=== PATIENT | male | born 1965 | race Caucasian/White ===

== ENCOUNTER 2017-11-02 20:27 | Observation (INO) ==
[2017-11-02] MEDS ORDERED: Nitroglycerin 0.4 MG TAB.SUBL SL ONE (20:30)
[2017-11-02] MEDS ORDERED: 0.9 % Sodium Chloride 500 ML IVC ONE (20:30)
[2017-11-02] MEDS ORDERED: Ondansetron 4 MG/2 ML VIAL IVP ONE (20:30)
[2017-11-02] MEDS ORDERED: Aspirin 81 MG TAB.CHEW PO ONE (20:30)
[2017-11-02 20:56] LABS: Basophils # 0.1 K/mcL (0.0-0.2); Basophils % 0.4 %; Eosinophils # 0.1 K/mcL (0.0-0.6); Eosinophils % 0.6 %; Hematocrit 43.2 % (37.5-50.1); Hemoglobin 14.9 g/dL (12.9-16.9); Immature Granulocytes % 0.4 % (0-4); Lymphocytes # 2.5 K/mcL (0.6-4.6); Mean Corpuscular HGB Conc 34.5 g/dL (31.6-35.5); Mean Corpuscular Hemoglobin 30.1 pg (28.0-33.3); Mean Corpuscular Volume 87.3 fL (83.0-100.0); Mean Platelet Volume 11.2 fL (9.4-12.4); Monocytes # 1.1 K/mcL (0.0-1.3); Monocytes % 7.9 %; Neutrophils # 9.6 K/mcL (1.6-8.9); Platelet Count 216 K/mcL (140-400); Red Blood Count 4.95 M/mcL (4.19-5.50); Red Cell Distribution Width 13.4 % (11.5-14.5); Segmented Neutrophils % 71.7 %
[2017-11-02 21:01] LABS: Prothrombin Time 10.8 Seconds (9.4-12.1)
[2017-11-02 21:04] LABS: Activated Partial Thrombo Time 29.7 Seconds (26.0-36.0)
[2017-11-02 21:10] LABS: BUN/Creatinine Ratio 10 (6-26); Blood Urea Nitrogen 10 mg/dL (6-20); Calcium 9.7 mg/dL (8.6-10.3); Carbon Dioxide 19 mEq/L (23-29); Chloride 107 mEq/L (98-107); Glucose 107 mg/dL (70-105); Osmolality,Calculated 282 (280-300); Potassium 3.5 mEq/L (3.5-5.1); Sodium 136 mEq/L (136-145); eGFR For African Americans > 60 (> 60); eGFR For Non-African Americans > 60 (> 60)
[2017-11-02 21:11] LABS: Albumin 4.6 g/dL (3.5-5.7); Albumin/Globulin Ratio 1.7 (1.1-2.2); Bilirubin,Direct 0.1 mg/dL (0.0-0.2); Bilirubin,Indirect 0.3 mg/dL (0.0-1.2); Bilirubin,Total 0.4 mg/dL (0.3-1.0); Globulin 2.7 g/dL (2.4-3.5); Total Protein 7.3 g/dL (6.4-8.9)
[2017-11-02] MEDS ORDERED: 0.9 % Sodium Chloride 1,000 ML IVC ONE (21:28)
[2017-11-02] MEDS ORDERED: Metoclopramide 10 MG/2 ML VIAL IVP ONE (21:41)
[2017-11-02] MEDS ORDERED: *HR* LORazepam 2 MG/ML VIAL IVP STA (21:42)
--- NOTE | 2017-11-02 22:07 | Emergency Department Note ---
Disposition Clinical Impression: Intractable nausea and vomiting Qualifiers: Vomiting type: unspecified Qualified Code(s): R11.2 - Nausea with vomiting, unspecified Disposition: Admitted As Inpatient Condition: Fair Referrals: NONE,PCP [Primary Care Provider] - Forms: ED Satisfaction Letter General Adult HPI - General Chief complaint: ED Chest Pain Stated complaint: chest pain Time Seen by Provider: 11/02/17 20:30 Source: EMS Limitations: no limitations Nursing Notes Reviewed: Yes Vital Signs Reviewed: Yes - History of Present Illness HPI Narrative: Patient presents to the emergency department via EMS with nausea and vomiting. EMS reports chest pain. The patient continues to dry heave upon evaluation. Patient is mildly diaphoretic and uncomfortable. The patient is not able to give any useful history. Patient has a peak history of PTSD and does not like to be touched. Examination of his abdomen or other through palpation is impossible. Slight touch to the arms causes him to jump which is related to be to his PTSD. At this point the patient's differential is broad. Intractable nausea and vomiting will undergo laboratory evaluation as well as CT head, chest , abdomen and pelvis. Discussed with CT the need for PE and dissection study of the chest with abdomen and pelvis with IV contrast. Zofran and fluids and been given. 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 Head: Normocephalic Atraumatic Eyes: PERRL, EOMI ENT: Airway patent, no stridor Neck: supple, no meningismus Chest: Lungs clear to auscultation bilateral Cardiac: Regular rate and rhythm, no murmurs, rubs or gallops Abdomen: diffuse tenderness to palpation - hard to interperet bcs diffuse to chest and extremities. Musculoskeletal: generalized tenderness to palpation. Skin: No rash, normal skin tone Neuro: moves all extremities without deficit - General Limitations: no limitations General appearance: in distress Course - Reevaluation(s) Reevaluation #1: Patient improved after the Reglan, Benadryl, Ativan has been given. Patient is a able to hold a conversation at this point. Patient still feels uncomfortable. He states that he gets really sick when he feels unwell. He is not able to further describe the symptoms the family states that he has had complaints of chest pain. He does have previous history of - Consultations Consultation #1: Discussed Dr. Gilbert. Patient accepted for admission secondary to intractable nausea vomiting, chest pain, and elevated lactate. Patient's vital signs are stable at this time. Vital Signs Temperature 98 F 11/02/17 20:31 Pulse Rate 59 11/02/17 20:31 Respiratory Rate 20 11/02/17 20:31 Blood Pressure 122/75 11/02/17 20:31 O2 Sat by Pulse Oximetry 99 11/02/17 20:31 Temperature 98 F 11/02/17 20:31 Pulse Rate 60 11/02/17 22:41 Respiratory Rate 18 11/02/17 22:41 Blood Pressure 113/71 11/02/17 22:41 O2 Sat by Pulse Oximetry 95 11/02/17 22:41 Oxygen Delivery Oxygen Delivery Nasal Cannula Medical Decision Making - Lab Data Result diagrams: 11/02/17 20:47 11/02/17 20:47 Lab Results 11/02/17 11/02/17 11/02/17 Range/Units 20:47 20:47 20:47 WBC (4.3-11.1) K/mcL RBC (4.19-5.50) M/mcL Hgb (12.9-16.9) g/dL Hct (37.5-50.1) % MCV (83.0-100.0) fL MCH (28.0-33.3) pg MCHC (31.6-35.5) g/dL RDW (11.5-14.5) % Plt Count (140-400) K/mcL MPV (9.4-12.4) fL Immature Gran % (0-4) % Seg Neutrophils % % Lymphocytes % % Monocytes % % Eosinophils % % Basophils % % Neutrophils # (1.6-8.9) K/mcL Lymphocytes # (0.6-4.6) K/mcL Monocytes # (0.0-1.3) K/mcL Eosinophils # (0.0-0.6) K/mcL Basophils # (0.0-0.2) K/mcL PT 10.8 (9.4-12.1) Seconds INR 1.0 APTT 29.7 (26.0-36.0) Seconds Sodium (136-145) mEq/L Potassium (3.5-5.1) mEq/L Chloride (98-107) mEq/L Carbon Dioxide (23-29) mEq/L BUN (6-20) mg/dL Creatinine (0.70-1.30) mg/dL Est GFR ( Amer) (> 60) Est GFR (Non-Af Amer) (> 60) BUN/Creatinine Ratio (6-26) Glucose (70-105) mg/dL Calculated Osmolality (280-300) Lactic Acid (0.5-2.2) mmol/L Calcium (8.6-10.3) mg/dL Total Bilirubin 0.4 (0.3-1.0) mg/dL Direct Bilirubin 0.1 (0.0-0.2) mg/dL Indirect Bilirubin 0.3 (0.0-1.2) mg/dL AST 16 (13-39) Units/L ALT 16 (7-52) Units/L Alkaline Phosphatase 58 (34-104) Units/L Troponin I (< 0.04) ng/mL B-Natriuretic Peptide 16 (Less than 100) pg/mL Serum Total Protein 7.3 (6.4-8.9) g/dL Albumin 4.6 (3.5-5.7) g/dL Globulin 2.7 (2.4-3.5) g/dL Albumin/Globulin Ratio 1.7 (1.1-2.2) Lipase 25 (11-82) Units/L Urine Color (Yellow) Urine Clarity (Clear) Urine pH (5.0-8.0) pH Units Ur Specific [place] (1.010-1.025) Urine Protein (Neg-Trace) mg/dL Urine Glucose (UA) (Normal) mg/dL Urine Ketones (Negative) mg/dL Urine Blood (Negative) Urine Nitrite (Negative) Urine Bilirubin (Negative) Urine Urobilinogen (Normal) mg/dL Ur Leukocyte Esterase (Negative) Ur Culture Indicated? (NO) 11/02/17 11/02/17 11/02/17 Range/Units 20:47 20:47 20:47 WBC 13.4 H (4.3-11.1) K/mcL RBC 4.95 (4.19-5.50) M/mcL Hgb 14.9 (12.9-16.9) g/dL Hct 43.2 (37.5-50.1) % MCV 87.3 (83.0-100.0) fL MCH 30.1 (28.0-33.3) pg MCHC 34.5 (31.6-35.5) g/dL RDW 13.4 (11.5-14.5) % Plt Count 216 (140-400) K/mcL MPV 11.2 (9.4-12.4) fL Immature Gran % 0.4 (0-4) % Seg Neutrophils % 71.7 % Lymphocytes % 19.0 % Monocytes % 7.9 % Eosinophils % 0.6 % Basophils % 0.4 % Neutrophils # 9.6 H (1.6-8.9) K/mcL Lymphocytes # 2.5 (0.6-4.6) K/mcL Monocytes # 1.1 (0.0-1.3) K/mcL Eosinophils # 0.1 (0.0-0.6) K/mcL Basophils # 0.1 (0.0-0.2) K/mcL PT (9.4-12.1) Seconds INR APTT (26.0-36.0) Seconds Sodium 136 (136-145) mEq/L Potassium 3.5 (3.5-5.1) mEq/L Chloride 107 (98-107) mEq/L Carbon Dioxide 19 L (23-29) mEq/L BUN 10 (6-20) mg/dL Creatinine 0.97 (0.70-1.30) mg/dL Est GFR ( Amer) > 60 (> 60) Est GFR (Non-Af Amer) > 60 (> 60) BUN/Creatinine Ratio 10 (6-26) Glucose 107 H (70-105) mg/dL Calculated Osmolality 282 (280-300) Lactic Acid (0.5-2.2) mmol/L Calcium 9.7 (8.6-10.3) mg/dL Total Bilirubin (0.3-1.0) mg/dL Direct Bilirubin (0.0-0.2) mg/dL Indirect Bilirubin (0.0-1.2) mg/dL AST (13-39) Units/L ALT (7-52) Units/L Alkaline Phosphatase (34-104) Units/L Troponin I < 0.03 (< 0.04) ng/mL B-Natriuretic Peptide (Less than 100) pg/mL Serum Total Protein (6.4-8.9) g/dL Albumin (3.5-5.7) g/dL Globulin (2.4-3.5) g/dL Albumin/Globulin Ratio (1.1-2.2) Lipase (11-82) Units/L Urine Color (Yellow) Urine Clarity (Clear) Urine pH (5.0-8.0) pH Units Ur Specific [place] (1.010-1.025) Urine Protein (Neg-Trace) mg/dL Urine Glucose (UA) (Normal) mg/dL Urine Ketones (Negative) mg/dL Urine Blood (Negative) Urine Nitrite (Negative) Urine Bilirubin (Negative) Urine Urobilinogen (Normal) mg/dL Ur Leukocyte Esterase (Negative) Ur Culture Indicated? (NO) 11/02/17 11/02/17 Range/Units 20:47 22:39 WBC (4.3-11.1) K/mcL RBC (4.19-5.50) M/mcL Hgb (12.9-16.9) g/dL Hct (37.5-50.1) % MCV (83.0-100.0) fL MCH (28.0-33.3) pg MCHC (31.6-35.5) g/dL RDW (11.5-14.5) % Plt Count (140-400) K/mcL MPV (9.4-12.4) fL Immature Gran % (0-4) % Seg Neutrophils % % Lymphocytes % % Monocytes % % Eosinophils % % Basophils % % Neutrophils # (1.6-8.9) K/mcL Lymphocytes # (0.6-4.6) K/mcL Monocytes # (0.0-1.3) K/mcL Eosinophils # (0.0-0.6) K/mcL Basophils # (0.0-0.2) K/mcL PT (9.4-12.1) Seconds INR APTT (26.0-36.0) Seconds Sodium (136-145) mEq/L Potassium (3.5-5.1) mEq/L Chloride (98-107) mEq/L Carbon Dioxide (23-29) mEq/L BUN (6-20) mg/dL Creatinine (0.70-1.30) mg/dL Est GFR ( Amer) (> 60) Est GFR (Non-Af Amer) (> 60) BUN/Creatinine Ratio (6-26) Glucose (70-105) mg/dL Calculated Osmolality (280-300) Lactic Acid 3.3 H (0.5-2.2) mmol/L Calcium (8.6-10.3) mg/dL Total Bilirubin (0.3-1.0) mg/dL Direct Bilirubin (0.0-0.2) mg/dL Indirect Bilirubin (0.0-1.2) mg/dL AST (13-39) Units/L ALT (7-52) Units/L Alkaline Phosphatase (34-104) Units/L Troponin I (< 0.04) ng/mL B-Natriuretic Peptide (Less than 100) pg/mL Serum Total Protein (6.4-8.9) g/dL Albumin (3.5-5.7) g/dL Globulin (2.4-3.5) g/dL Albumin/Globulin Ratio (1.1-2.2) Lipase (11-82) Units/L Urine Color Yellow (Yellow) Urine Clarity Clear (Clear) Urine pH 7.5 (5.0-8.0) pH Units Ur Specific [place] 1.008 L (1.010-1.025) Urine Protein Negative (Neg-Trace) mg/dL Urine Glucose (UA) Normal (Normal) mg/dL Urine Ketones Negative (Negative) mg/dL Urine Blood Negative (Negative) Urine Nitrite Negative (Negative) Urine Bilirubin Negative (Negative) Urine Urobilinogen Normal (Normal) mg/dL Ur Leukocyte Esterase Negative (Negative) Ur Culture Indicated? NO (NO) - EKG Data EKG #1 EKG attestation: Yes I reviewed and interpreted this EKG. EKG results narrative: EKG shows ventricular rate of 60. Atrially paced. Nonspecific T-wave abnormalities. T-wave flattening compared to previous. Attestation Statement - Attestation Attestation: I, Tez Argueta DO, examined this patient [id number] and my medical decision-making was reviewed with Ta Marr DO, Resident Physician. I agree with the documented findings, disposition and treatment plan as described except to the extent set forth below. Please see my progress notes for details. 52-year-old male presents to emergency room for evaluation of chest pain associated yesterday. Today it has progressed and intractable nausea and vomiting. Patient has no specific surgical history history of bowel obstruction. Vital signs at presentation showed tachycardia and hypertension. He is not breathing difficulty at this time. He has normal pulse ox. Is afebrile. On evaluation the bedside patient does appear to be in some significant pain with vomiting. He is actively describing chest discomfort and pain as well as abdominal discomfort. Lungs are clear heart is regular abdomen is soft but does have tenderness diffusely on palpation: Point tenderness to the iliac symptoms. Patient moves all 4 extremities without any difficulty. Patient is initially and also in the emergency room due to significant pain with standing upright. Patient is concerning for cardiac versus bowel obstruction at this time. Symptomatically controlled he completed his nausea medication pain medication here. Patient will screening chest x-ray EKG and labs. Labs reviewed and shows mild white blood cell count but otherwise his Chemstrip L troponin and BNP are normal. His EKG shows sinus rhythm and no acute ST segment elevations or abnormalities. Troponin is negative. Chest x- ray stable. CT imaging is pending. Patient will most likely be signed out to the nighttime physician for admission process to be completed. Hospitalist will be contacted further recommendations and admission. Patient will most likely need admission for either surgical pathology or cardiac related illness. See detailed documentation of the physical exam, medical intervention, medical decision-making and disposition and the resident physician's note. No critical care provider this patient's treatment course this time [address] scans of the abdomen for acute pathology. No signs of obstruction or dissection. Chest CT is negative. Patient's symptoms of uncontrolled. With Reglan and Benadryl and Ativan. Patient will be admitted for cardiac evaluation and symptom control for intractable nausea and vomiting. Patient has a negative troponin and EKG during his treatment course. Patient was discussed with the hospitalist for admission, this plan. No recommendations or concerns from them at this time. See detailed documentation of this conversation resident physician's note.
[2017-11-02 22:46] LABS: Bilirubin,Urine Negative (Negative); Blood,Urine Negative (Negative); Clarity,Urine Clear (Clear); Color,Urine Yellow (Yellow); Glucose,Urine (UA) Normal (Normal); Ketones,Urine Negative (Negative); Leukocyte Esterase,Urine Negative (Negative); Nitrite,Urine Negative (Negative); PH,Urine 7.5 pH Units (5.0-8.0); Protein,Urine Negative (Neg-Trace); Specific Gravity,Urine 1.008 (1.010-1.025); Urobilinogen,Urine Normal (Normal)
[2017-11-02] MEDS ORDERED: Ondansetron 4 MG/2 ML VIAL IVP PRN (23:13)
[2017-11-02] MEDS: 0.9 % Sodium Chloride 1,000 ML IVC SCH (23:32)
[2017-11-03] MEDS ORDERED: *HR* Promethazine 25 MG/ML VIAL IVP PRN (00:55)
[2017-11-03] MEDS ORDERED: Acetaminophen 325 MG TABLET PO PRN (00:55)
[2017-11-03] MEDS ORDERED: Ondansetron 4 MG/2 ML VIAL IVP PRN (00:55)
--- NOTE | 2017-11-03 01:29 | Internal Med History&Physical ---
Date of Encounter: 11/03/17 Time of Encounter: 01:15 Assessment and Plan (1) Intractable nausea and vomiting Current visit: Yes Status: Acute Could be related to gastroenteritis/viral gastroenteritis. With lactic acidosis. We will treat symptomatically. Antiemetics. PPI daily. Keep NPO for now. IV hydration. Qualifiers: Vomiting type: cyclical vomiting Qualified Code(s): G43.A1 - Cyclical vomiting, intractable (2) Shoulder pain, right Current visit: Yes Status: Acute After recent fall. Will treat symptomatically. Get x-ray of right shoulder to rule out any acute fracture. Qualifiers: Chronicity: acute Qualified Code(s): M25.511 - Pain in right shoulder (3) Essential (primary) hypertension Current visit: Yes Status: Chronic Continue metoprolol. Internal Medicine - H&P: HPI Chief complaint: Nausea/ vomiting Admitted From: Emergency Dept Plans for Post Hospital Care: Home History of present illness: Mr. Alcala is a 52 year old male patient with a history of hypertension who presented to the ER with complaints of intractable nausea and vomiting. Symptoms have been going on for 2-3 days. Patient also has had couple episodes of falls with injury to his right knee and right shoulder. He does complain of severe pain in his right shoulder. Denies any fever or chills. Does describe some chest pain related to his episodes of nausea and vomiting. No palpitations. No dizziness or lightheadedness. No hematemesis. Past Med Surg Social Fam HX - Past Medical History Source: patient, old records reviewed Medical history: atrial fibrillation Psychiatric history: depression, PTSD - Past Surgical History Surgical History: other, pacemaker - Social History Smoking Status: Former smoker Smokeless Tobacco Status: No Alcohol use: none Drug use: marijuana - Family History Father Living Status: Hx Family Cardiac Disorders: Yes Hx Family Cancer: Yes Internal Medicine - H&P: Meds Aspirin [Lo-Dose Aspirin EC] 81 mg PO DAILY 04/11/17 [History] Metoprolol [Lopressor] 25 mg PO BID 10/20/17 [History] 3 Allergy/AdvReac Type Severity Reaction Status Date / Time No Known Allergies Allergy Verified 04/11/17 15:02 All Systems PM: A 10-system review of systems was performed and is negative for pertinent findings except as documented above in the HPI. - Constitutional Constitutional: no chills, no fever(s), no night sweats - EENT Eyes: no change in vision, no discharge, no pain, no photophobia Ears: no ear discharge, no ear pain, no tinnitus Nose, mouth and throat: no dysphagia, no nasal discharge, no neck pain, no sore throat - Cardiovascular Cardiovascular ROS IM: no chest pain, no diaphoresis, no dyspnea, no lightheadedness, no palpitations, no syncope - Respiratory Respiratory: no cough, no dyspnea, no wheezing, no excessive phlegm production - Gastrointestinal Gastrointestinal: nausea, vomiting, no abdominal pain, no diarrhea, no hematemesis, no hematochezia, no melena - Musculoskeletal Musculoskeletal ROS IM: no numbness, no tingling - Integumentary Integumentary IM: no rash, no unusual bruising - Neurological Neurological ROS: no confusion, no convulsions, no focal weakness, no numbness, no tingling, no tremor(s) - Hematologic/Lymphatic Hematologic/Lymphatic: no easy bruising - Constitutional Vitals: Temp Pulse Resp BP Pulse Ox 97.5 F L 61 16 128/77 96 11/03/17 00:48 11/03/17 00:48 11/03/17 00:48 11/03/17 00:48 11/03/17 00:48 General appearance: Present: cooperative, A&O X 3, answers questions appropriately - Respiratory Respiratory exam: Present: CTAB. Absent: accessory muscle use, rales, rhonchi, wheezes - Cardiovascular Cardiovascular exam: Present: RRR, +S1, +S2. Absent: diastolic murmur, gallop, rubs, systolic murmur - GI/Abdominal GI/Abdominal exam: Present: normal bowel sounds, soft, no peritoneal signs. Absent: distended, tenderness - Extremities Exam Extremities exam: Present: tenderness (right shoulder), warm, radial pulses palpable and symmetrical. Absent: calf tenderness, cyanotic, pedal edema - Neurological Exam Neurological exam: Present: alert, oriented X3, no focal deficits. Absent: facial droop, speech deficit - Skin Skin exam: Present: dry, intact Internal Med - H&P Results - Labs CBC & Chem 7: 11/02/17 20:47 11/02/17 20:47 - EKG Data -: EKG Interpreted by Myself EKG shows normal: sinus rhythm - EKG Data Interpretation IM: normal EKG - Impressions Impressions Chest X-Ray 11/02/17 20:30 IMPRESSION: No acute process. D/ / Harvey Barbosa MD / Harvey Barbosa MD Interpreting Provider: Harvey Barbosa MD Abdomen/Pelvis CT 11/02/17 21:38 IMPRESSION: No acute findings. Duplicated right renal collecting system. D/ / Nikhil Blancas MD / Nikhil Blancas MD Interpreting Provider: Nikhil Blancas MD Chest CTA 11/02/17 21:38 IMPRESSION: No evidence of pulmonary embolism or acute pulmonary abnormality. D/ / Harjit Cooper MD / Harjit Cooper MD Interpreting Provider: Harjit Cooper MD Head CT 11/02/17 21:56 IMPRESSION: No acute intracranial abnormality. D/ / 11/02/2017 23:00:15 Sukhi Jones MD / earnold Interpreting Provider: Sukhi Jones MD
[2017-11-03 05:00] LABS: Basophils % 0.6 %; Eosinophils # 0.1 K/mcL (0.0-0.6); Eosinophils % 1.6 %; Hematocrit 39.9 % (37.5-50.1); Immature Granulocytes % 0.1 % (0-4); Lymphocytes # 2.4 K/mcL (0.6-4.6); Lymphocytes % 34.3 %; Mean Corpuscular HGB Conc 33.3 g/dL (31.6-35.5); Mean Corpuscular Volume 89.9 fL (83.0-100.0); Mean Platelet Volume 11.2 fL (9.4-12.4); Monocytes # 0.7 K/mcL (0.0-1.3); Monocytes % 9.5 %; Neutrophils # 3.7 K/mcL (1.6-8.9); Platelet Count 168 K/mcL (140-400); Red Blood Count 4.44 M/mcL (4.19-5.50); Red Cell Distribution Width 13.6 % (11.5-14.5); Segmented Neutrophils % 53.9 %
[2017-11-03 05:04] LABS: Hemoglobin 13.3 g/dL (12.9-16.9)
[2017-11-03 05:17] LABS: BUN/Creatinine Ratio 9 (6-26); Blood Urea Nitrogen 8 mg/dL (6-20); Calcium 8.2 mg/dL (8.6-10.3); Carbon Dioxide 24 mEq/L (23-29); Chloride 114 mEq/L (98-107); Glucose 88 mg/dL (70-105); Osmolality,Calculated 290 (280-300); Potassium 3.7 mEq/L (3.5-5.1); Sodium 141 mEq/L (136-145); eGFR For African Americans > 60 (> 60); eGFR For Non-African Americans > 60 (> 60)
[2017-11-03] MEDS: 0.9 % Sodium Chloride 1,000 ML IVC SCH ×2 (06:05→14:28)
--- NOTE | 2017-11-03 08:23 | Electrocardiograph Report ---
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
[2017-11-03] MEDS ORDERED: Aspirin Enteric Coated 81 MG Tablet PO SCH (09:00)
[2017-11-03] MEDS ORDERED: Pantoprazole 40 MG VIAL IVP SCH (09:00)
[2017-11-03] MEDS ORDERED: *HR* LORazepam 2 MG/ML VIAL IVP ONE (14:45)
[2017-11-03 16:10] VITALS: BP 128/81
[2017-11-03] MEDS ORDERED: 0.9 % Sodium Chloride 1,000 ML IVC ONE (17:29)
[2017-11-03] MEDS ORDERED: *HR* LORazepam 2 MG/ML VIAL IVP PRN (17:30)
--- NOTE | 2017-11-03 17:34 | Event Note ---
Date of Encounter: 11/03/17 Time of Encounter: 14:00 1. Intractable nausea and vomiting Current visit: Yes Status: Acute Could be related to gastroenteritis/viral gastroenteritis or marijuana use. With lactic acidosis. IV fluids, Antiemetics. PPI daily. Advance diet as tolerated. Monitor repeat lactic acid 2. Shoulder pain, right Current visit: Yes Status: Acute After recent fall. Right shoulder x-ray non-acute. 3. Essential (primary) hypertension Continue metoprolol. 4. Anxiety: patient reports hx PTSD, non-complaint with medications. Add PRN ativan DVT prophylaxis: heparin
[2017-11-03] MEDS ORDERED: *HR* Heparin 5,000 UNIT/ML VIAL SQ SCH (22:00)
[2017-11-04] MEDS ORDERED: Aspirin Enteric Coated 81 MG Tablet PO SCH (09:00)
== END 2017-11-03 17:06 | disposition left against medical advice (07) ==
LOC: EMEROO 20:27 → 3BNU 20:27
PROVIDERS: ADMIT Internal Medicine; ATTEND Registered Nurse

== ENCOUNTER 2018-10-26 01:46 | Observation (INO) ==
[2018-10-26 02:10] LABS: Basophils # 0.1 K/mcL (0.0-0.2); Basophils % 1.2 %; Eosinophils # 0.1 K/mcL (0.0-0.6); Eosinophils % 1.8 %; Hematocrit 40.9 % (37.5-50.1); Immature Granulocytes % 0.3 % (0-4); Lymphocytes # 1.9 K/mcL (0.6-4.6); Lymphocytes % 31.3 %; Mean Corpuscular HGB Conc 34.2 g/dL (31.6-35.5); Mean Corpuscular Hemoglobin 30.4 pg (28.0-33.3); Mean Corpuscular Volume 88.7 fL (83.0-100.0); Mean Platelet Volume 11.2 fL (9.4-12.4); Monocytes # 0.7 K/mcL (0.0-1.3); Monocytes % 10.8 %; Neutrophils # 3.3 K/mcL (1.6-8.9); Platelet Count 182 K/mcL (140-400); Red Blood Count 4.61 M/mcL (4.19-5.50); Red Cell Distribution Width 13.1 % (11.5-14.5); Segmented Neutrophils % 54.6 %
--- NOTE | 2018-10-26 02:27 | Emergency Department Note ---
Disposition Clinical Impression: Altered mental status Qualifiers: Altered mental status type: unspecified Qualified Code(s): R41.82 - Altered mental status, unspecified Disposition: Admitted As Inpatient Condition: Fair Time of Disposition: 05:47 General Adult HPI - General Chief complaint: ED General Medical Stated complaint: Unresponsive Time Seen by Provider: 10/26/18 02:01 Source: EMS Limitations: altered mental status - History of Present Illness HPI Narrative: Patient is a 53-year-old male presenting to [facility] ED for unresponsiveness. EMS states the patient admitted 911 call stating that he was concerned for carbon monoxide poisoning. He states on the [facility] home patient was sitting in a chair drooling and the nose was unresponsive. EMS states that in route patient was only responsive to painful stimuli, half milligram of Narcan was given in route which produced no fax. Upon reaching the ED patient was unresponsive initially to painful stimuli, 2 mg of Narcan were administered. Patient slowly began to become responsive to painful and then verbal stimuli. [place] Coma Scale estimated 11. Patient protecting his own airway in trauma bay, began to communicate by pointing. Patient frequently pointing toward his head, when asked had a headache he sli ghtly nodded. Pain Scale: 0 - Related Data Home Medications Medication Instructions Recorded Confirmed RX: Aspirin [Lo-Dose Aspirin EC] 81 mg PO DAILY 04/11/17 03/29/18 Metoprolol [Lopressor] 25 mg PO BID 10/20/17 03/29/18 Previous Rx's Medication Instructions Recorded Naproxen [Naprosyn] 500 mg PO BID #14 tablet 03/29/18 RX: Cyclobenzaprine [Flexeril] 10 mg PO TID PRN #9 tablet 03/29/18 Allergies Allergy/AdvReac Type Severity Reaction Status Date / Time No Known Allergies Allergy Verified 10/26/18 01:53 Limitations: ROS unobtainable due to patients medical condition Past Medical History - Past Medical History Medical history: Reports: atrial fibrillation, dementia, seizures, other Surgical history: Reports: pacemaker/AICD, pacemaker Psychiatric history: Reports: anxiety, depression, PTSD - Social History Smoking Status: Unknown if ever smoked Smokeless Tobacco Status: No Alcohol use: Reports: none Drug use: Reports: marijuana Physical Exam - General Limitations: altered mental status General appearance: obtunded - Head Head exam: atraumatic, normocephalic - Eye Eye exam: Present: normal appearance, PERRL. Absent: scleral icterus - Chest Chest inspection: Present: normal inspection, symmetric chest wall rise - Respiratory Respiratory exam: Present: normal lung sounds bilaterally. Absent: respiratory distress, wheezes, stridor, accessory muscle use, prolonged expiratory phase - Cardiovascular Cardiovascular exam: Present: regular rate, normal rhythm, normal heart sounds, +S1, +S2. Absent: systolic murmur, diastolic murmur, JVD, +S3, +S4 - Abdominal Exam Abdominal exam: Present: soft, Non-Tender, normal bowel sounds. Absent: distention, guarding, rebound, rigidity - Expanded Neurological Exam Coma Scale Eye Opening: Spontaneous Coma Scale Motor Response: Localizes to Pain Coma Scale Verbal Response: Incomprehensible Coma Scale Total: 11 - Skin Skin exam: Present: warm, dry, intact Course Course Narrative: CT scan ordered to assess for potential intracranial abnormalities Ethanol, acetaminophen, salicylate, urine drug screen to assess for potential intoxication/overdose CBC, CMP, urinalysis, troponin, PT/PTT/INR, TSH to assess for underlying me tabolic/infectious abnormalities. Vital Signs Temperature 97.7 F 10/26/18 01:53 Pulse Rate 63 10/26/18 01:53 Respiratory Rate 20 10/26/18 01:53 Blood Pressure 137/79 10/26/18 01:53 O2 Sat by Pulse Oximetry 97 10/26/18 01:53 Temperature 97.7 F 10/26/18 01:53 Pulse Rate 60 10/26/18 05:01 Respiratory Rate 14 10/26/18 05:01 Blood Pressure 118/66 10/26/18 05:01 O2 Sat by Pulse Oximetry 95 10/26/18 05:01 Oxygen Delivery Oxygen Delivery Room Air Medical Decision Making - MDM Narrative Medical decision making narrative: Patient found to have mild carboxyhemoglobinemia at 6.7-which is likely elevated due to his smoking history Patient toxicology positive for marijuana All other labs and imaging results are largely unremarkable. Patient will be admitted for further evaluation and management of altered mental status of unknown origin. - Lab Data Lab results reviewed: Yes I reviewed the patient's lab results. Result diagrams: 10/26/18 01:55 10/26/18 01:55 Lab Results 10/26/18 10/26/18 10/26/18 Range/Units 01:55 01:55 01:55 WBC 6.0 (4.3-11.1) K/mcL RBC 4.61 (4.19-5.50) M/mcL Hgb 14.0 (12.9-16.9) g/dL Hct 40.9 (37.5-50.1) % MCV 88.7 (83.0-100.0) fL MCH 30.4 (28.0-33.3) pg MCHC 34.2 (31.6-35.5) g/dL RDW 13.1 (11.5-14.5) % Plt Count 182 (140-400) K/mcL MPV 11.2 (9.4-12.4) fL Immature Gran % 0.3 (0-4) % Seg Neutrophils % 54.6 % Lymphocytes % 31.3 % Monocytes % 10.8 % Eosinophils % 1.8 % Basophils % 1.2 % Neutrophils # 3.3 (1.6-8.9) K/mcL Lymphocytes # 1.9 (0.6-4.6) K/mcL Monocytes # 0.7 (0.0-1.3) K/mcL Eosinophils # 0.1 (0.0-0.6) K/mcL Basophils # 0.1 (0.0-0.2) K/mcL PT 11.3 (9.4-12.1) Seconds INR 1.0 APTT 33.6 (26.0-36.0) Seconds Carboxyhemoglobin (0-5) % Sodium 138 (136-145) mEq/L Potassium 3.4 L (3.5-5.1) mEq/L Chloride 105 (98-107) mEq/L Carbon Dioxide 24 (23-29) mEq/L BUN 16 (6-20) mg/dL Creatinine 0.79 (0.70-1.30) mg/dL Est GFR ( Amer) > 60 (> 60) Est GFR (Non-Af Amer) > 60 (> 60) BUN/Creatinine Ratio 20 (6-26) Glucose 102 (70-105) mg/dL Calculated Osmolality 287 (280-300) Calcium 9.6 (8.6-10.3) mg/dL Total Bilirubin 0.4 (0.3-1.0) mg/dL Direct Bilirubin 0.1 (0.0-0.2) mg/dL Indirect Bilirubin 0.3 (0.0-1.2) mg/dL AST 12 L (13-39) Units/L ALT 9 (7-52) Units/L Alkaline Phosphatase 50 (34-104) Units/L Ammonia (16-53) mcmol/L Troponin I < 0.03 (< 0.04) ng/mL Serum Total Protein 7.0 (6.4-8.9) g/dL Albumin 4.5 (3.5-5.7) g/dL Globulin 2.5 (2.4-3.5) g/dL Albumin/Globulin Ratio 1.8 (1.1-2.2) TSH 5.121 (0.340-5.600) mcIU/mL Urine Color (Yellow) Urine Clarity (Clear) Urine pH (5.0-8.0) pH Units Ur Specific [place] (1.010-1.025) Urine Protein (Neg-Trace) mg/dL Urine Glucose (UA) (Normal) mg/dL Urine Ketones (Negative) mg/dL Urine Blood (Negative) Urine Nitrite (Negative) Urine Bilirubin (Negative) Urine Urobilinogen (Normal) mg/dL Ur Leukocyte Esterase (Negative) Urine Microscopic RBC (0-3) per hpf Urine Microscopic WBC (0-3) per hpf Ur Squamous Epith Cells (None-Few) per lpf Urine Bacteria (None-Few) per hpf Hyaline Casts (None-Few) per lpf Ur Culture Indicated? (NO) Urine Opiates Screen (Umhwid=020) ng/mL Ur Barbiturates Screen (Qwknyg=707) ng/mL Ur Phencyclidine Scrn (Cutoff=25) ng/mL Ur Amphetamines Screen (Tyeikg=5423) ng/mL U Benzodiazepines Scrn (Yaadtu=593) ng/mL Urine Cocaine Screen (Cutoff= 300) ng/mL U Marijuana (THC) Screen (Cutoff = 50) ng/mL Ur Drug Screen Interp Ethyl Alcohol < 10 (Less than 10) mg/dL 10/26/18 10/26/18 10/26/18 Range/Units 01:55 01:55 02:24 WBC (4.3-11.1) K/mcL RBC (4.19-5.50) M/mcL Hgb (12.9-16.9) g/dL Hct (37.5-50.1) % MCV (83.0-100.0) fL MCH (28.0-33.3) pg MCHC (31.6-35.5) g/dL RDW (11.5-14.5) % Plt Count (140-400) K/mcL MPV (9.4-12.4) fL Immature Gran % (0-4) % Seg Neutrophils % % Lymphocytes % % Monocytes % % Eosinophils % % Basophils % % Neutrophils # (1.6-8.9) K/mcL Lymphocytes # (0.6-4.6) K/mcL Monocytes # (0.0-1.3) K/mcL Eosinophils # (0.0-0.6) K/mcL Basophils # (0.0-0.2) K/mcL PT (9.4-12.1) Seconds INR APTT (26.0-36.0) Seconds Carboxyhemoglobin 6.7 H (0-5) % Sodium (136-145) mEq/L Potassium (3.5-5.1) mEq/L Chloride (98-107) mEq/L Carbon Dioxide (23-29) mEq/L BUN (6-20) mg/dL Creatinine (0.70-1.30) mg/dL Est GFR ( Amer) (> 60) Est GFR (Non-Af Amer) (> 60) BUN/Creatinine Ratio (6-26) Glucose (70-105) mg/dL Calculated Osmolality (280-300) Calcium (8.6-10.3) mg/dL Total Bilirubin (0.3-1.0) mg/dL Direct Bilirubin (0.0-0.2) mg/dL Indirect Bilirubin (0.0-1.2) mg/dL AST (13-39) Units/L ALT (7-52) Units/L Alkaline Phosphatase (34-104) Units/L Ammonia 42 (16-53) mcmol/L Troponin I (< 0.04) ng/mL Serum Total Protein (6.4-8.9) g/dL Albumin (3.5-5.7) g/dL Globulin (2.4-3.5) g/dL Albumin/Globulin Ratio (1.1-2.2) TSH (0.340-5.600) mcIU/mL Urine Color Dark Yellow (Yellow) Urine Clarity Clear (Clear) Urine pH 5.5 (5.0-8.0) pH Units Ur Specific [place] 1.020 (1.010-1.025) Urine Protein 30 H (Neg-Trace) mg/dL Urine Glucose (UA) Normal (Normal) mg/dL Urine Ketones 80 H (Negative) mg/dL Urine Blood Negative (Negative) Urine Nitrite Negative (Negative) Urine Bilirubin Small H (Negative) Urine Urobilinogen Normal (Normal) mg/dL Ur Leukocyte Esterase Negative (Negative) Urine Microscopic RBC 0-3 (0-3) per hpf Urine Microscopic WBC 0-3 (0-3) per hpf Ur Squamous Epith Cells Many H (None-Few) per lpf Urine Bacteria None Seen (None-Few) per hpf Hyaline Casts None Seen (None-Few) per lpf Ur Culture Indicated? NO (NO) Urine Opiates Screen (Kkaebt=282) ng/mL Ur Barbiturates Screen (Dsspmy=619) ng/mL Ur Phencyclidine Scrn (Cutoff=25) ng/mL Ur Amphetamines Screen (Hxynnj=1570) ng/mL U Benzodiazepines Scrn (Uzjqzf=262) ng/mL Urine Cocaine Screen (Cutoff= 300) ng/mL U Marijuana (THC) Screen (Cutoff = 50) ng/mL Ur Drug Screen Interp Ethyl Alcohol (Less than 10) mg/dL 10/26/18 Range/Units 02:24 WBC (4.3-11.1) K/mcL RBC (4.19-5.50) M/mcL Hgb (12.9-16.9) g/dL Hct (37.5-50.1) % MCV (83.0-100.0) fL MCH (28.0-33.3) pg MCHC (31.6-35.5) g/dL RDW (11.5-14.5) % Plt Count (140-400) K/mcL MPV (9.4-12.4) fL Immature Gran % (0-4) % Seg Neutrophils % % Lymphocytes % % Monocytes % % Eosinophils % % Basophils % % Neutrophils # (1.6-8.9) K/mcL Lymphocytes # (0.6-4.6) K/mcL Monocytes # (0.0-1.3) K/mcL Eosinophils # (0.0-0.6) K/mcL Basophils # (0.0-0.2) K/mcL PT (9.4-12.1) Seconds INR APTT (26.0-36.0) Seconds Carboxyhemoglobin (0-5) % Sodium (136-145) mEq/L Potassium (3.5-5.1) mEq/L Chloride (98-107) mEq/L Carbon Dioxide (23-29) mEq/L BUN (6-20) mg/dL Creatinine (0.70-1.30) mg/dL Est GFR ( Amer) (> 60) Est GFR (Non-Af Amer) (> 60) BUN/Creatinine Ratio (6-26) Glucose (70-105) mg/dL Calculated Osmolality (280-300) Calcium (8.6-10.3) mg/dL Total Bilirubin (0.3-1.0) mg/dL Direct Bilirubin (0.0-0.2) mg/dL Indirect Bilirubin (0.0-1.2) mg/dL AST (13-39) Units/L ALT (7-52) Units/L Alkaline Phosphatase (34-104) Units/L Ammonia (16-53) mcmol/L Troponin I (< 0.04) ng/mL Serum Total Protein (6.4-8.9) g/dL Albumin (3.5-5.7) g/dL Globulin (2.4-3.5) g/dL Albumin/Globulin Ratio (1.1-2.2) TSH (0.340-5.600) mcIU/mL Urine Color (Yellow) Urine Clarity (Clear) Urine pH (5.0-8.0) pH Units Ur Specific [place] (1.010-1.025) Urine Protein (Neg-Trace) mg/dL Urine Glucose (UA) (Normal) mg/dL Urine Ketones (Negative) mg/dL Urine Blood (Negative) Urine Nitrite (Negative) Urine Bilirubin (Negative) Urine Urobilinogen (Normal) mg/dL Ur Leukocyte Esterase (Negative) Urine Microscopic RBC (0-3) per hpf Urine Microscopic WBC (0-3) per hpf Ur Squamous Epith Cells (None-Few) per lpf Urine Bacteria (None-Few) per hpf Hyaline Casts (None-Few) per lpf Ur Culture Indicated? (NO) Urine Opiates Screen Negative (Sznvou=773) ng/mL Ur Barbiturates Screen Negative (Qtsqyg=515) ng/mL Ur Phencyclidine Scrn Negative (Cutoff=25) ng/mL Ur Amphetamines Screen Negative (Sbvara=9431) ng/mL U Benzodiazepines Scrn Negative (Fadydv=120) ng/mL Urine Cocaine Screen Negative (Cutoff= 300) ng/mL U Marijuana (THC) Screen Positive H (Cutoff = 50) ng/mL Ur Drug Screen Interp See Below Ethyl Alcohol (Less than 10) mg/dL - Radiology Data Radiology results reviewed: Yes I reviewed the patient's radiology results. Chest X-Ray 10/26/18 01:57 IMPRESSION: No significant findings in the chest. D/ / Scotty Woo MD / Scotty Woo MD Interpreting Provider: Scotty Woo MD Head CT 10/26/18 01:57 IMPRESSION: No acute intracranial abnormality. D/ / Scotty Woo MD / Scotty Woo MD Interpreting Provider: Scotty Woo MD
[2018-10-26 02:29] LABS: Prothrombin Time 11.3 Seconds (9.4-12.1)
[2018-10-26 02:32] LABS: Activated Partial Thrombo Time 33.6 Seconds (26.0-36.0)
[2018-10-26 02:44] LABS: Alanine Aminotransferase 9 Units/L (7-52); Albumin 4.5 g/dL (3.5-5.7); Albumin/Globulin Ratio 1.8 (1.1-2.2); Alkaline Phosphatase 50 Units/L (34-104); Aspartate Amino Transferase 12 Units/L (13-39); BUN/Creatinine Ratio 20 (6-26); Bilirubin,Direct 0.1 mg/dL (0.0-0.2); Bilirubin,Indirect 0.3 mg/dL (0.0-1.2); Bilirubin,Total 0.4 mg/dL (0.3-1.0); Blood Urea Nitrogen 16 mg/dL (6-20); Calcium 9.6 mg/dL (8.6-10.3); Carbon Dioxide 24 mEq/L (23-29); Chloride 105 mEq/L (98-107); Ethanol < 10 mg/dL (Less than 10); Globulin 2.5 g/dL (2.4-3.5); Glucose 102 mg/dL (70-105); Osmolality,Calculated 287 (280-300); Potassium 3.4 mEq/L (3.5-5.1); Sodium 138 mEq/L (136-145); Troponin I < 0.03 ng/mL (< 0.04); eGFR For Non-African Americans > 60 (> 60)
[2018-10-26 02:45] LABS: Bilirubin,Urine Small (Negative); Blood,Urine Negative (Negative); Clarity,Urine Clear (Clear); Color,Urine Dark Yellow (Yellow); Glucose,Urine (UA) Normal (Normal); Ketones,Urine 80 mg/dL (Negative); Leukocyte Esterase,Urine Negative (Negative); Nitrite,Urine Negative (Negative); PH,Urine 5.5 pH Units (5.0-8.0); Protein,Urine 30 mg/dL (Neg-Trace); Urobilinogen,Urine Normal (Normal)
[2018-10-26 02:47] LABS: Bacteria,Urine None Seen per hpf (None-Few); Hyaline Casts,Urine None Seen per lpf (None-Few); RBC,Urine 0-3 per hpf (0-3); Squamous Epithelial Cell,Urine Many per lpf (None-Few); WBC,Urine 0-3 per hpf (0-3)
[2018-10-26 02:58] LABS: Thyroid Stimulating Hormone 5.121 mcIU/mL (0.340-5.600)
[2018-10-26 03:08] LABS: Amphetamine Screen,Urine Negative ng/mL (Cutoff=1000); Barbiturate Screen,Urine Negative ng/mL (Cutoff=200); Benzodiazepines Screen,Urine Negative ng/mL (Cutoff=200); Cannabinoid Screen,Urine Positive ng/mL (Cutoff = 50); Cocaine Screen,Urine Negative ng/mL (Cutoff= 300); Opiate Screen,Urine Negative ng/mL (Cutoff=300); Phencyclidine Screen,Urine Negative ng/mL (Cutoff=25)
--- NOTE | 2018-10-26 05:08 | Emergency Department Note ---
Disposition Clinical Impression: Altered mental status Qualifiers: Altered mental status type: unspecified Qualified Code(s): R41.82 - Altered mental status, unspecified Disposition: Admitted As Inpatient Condition: Fair General Adult HPI - General Chief complaint: ED General Medical Stated complaint: Unresponsive Time Seen by Provider: 10/26/18 02:01 Source: EMS Limitations: altered mental status Nursing Notes Reviewed: Yes Vital Signs Reviewed: Yes - History of Present Illness Pain Scale: 0 - Related Data Home Medications Medication Instructions Recorded Confirmed Aspirin [Lo-Dose Aspirin EC] 81 mg PO DAILY 04/11/17 03/29/18 Metoprolol [Lopressor] 25 mg PO BID 10/20/17 03/29/18 Previous Rx's Medication Instructions Recorded Cyclobenzaprine [Flexeril] 10 mg PO TID PRN #9 tablet 03/29/18 Naproxen [Naprosyn] 500 mg PO BID #14 tablet 03/29/18 Allergies Allergy/AdvReac Type Severity Reaction Status Date / Time No Known Allergies Allergy Verified 10/26/18 01:53 Past Medical History - Past Medical History Medical history: Reports: atrial fibrillation, dementia, seizures, other Surgical history: Reports: pacemaker/AICD, pacemaker Psychiatric history: Reports: anxiety, depression, PTSD - Social History Smoking Status: Unknown if ever smoked Smokeless Tobacco Status: No Alcohol use: Reports: none Drug use: Reports: marijuana Physical Exam - General Limitations: altered mental status General appearance: obtunded Course Vital Signs Temperature 97.7 F 10/26/18 01:53 Pulse Rate 63 10/26/18 01:53 Respiratory Rate 20 10/26/18 01:53 Blood Pressure 137/79 10/26/18 01:53 O2 Sat by Pulse Oximetry 97 10/26/18 01:53 Temperature 97.7 F 10/26/18 01:53 Pulse Rate 60 10/26/18 05:01 Respiratory Rate 14 10/26/18 05:01 Blood Pressure 118/66 10/26/18 05:01 O2 Sat by Pulse Oximetry 95 10/26/18 05:01 Oxygen Delivery Oxygen Delivery Room Air Medical Decision Making - Medical Records Medical records reviewed: Yes I reviewed the patient's medical records. - Lab Data Lab results reviewed: Yes I reviewed the patient's lab results. Result diagrams: 10/26/18 01:55 10/26/18 01:55 Lab Results 10/26/18 10/26/18 10/26/18 Range/Units 01:55 01:55 01:55 WBC 6.0 (4.3-11.1) K/mcL RBC 4.61 (4.19-5.50) M/mcL Hgb 14.0 (12.9-16.9) g/dL Hct 40.9 (37.5-50.1) % MCV 88.7 (83.0-100.0) fL MCH 30.4 (28.0-33.3) pg MCHC 34.2 (31.6-35.5) g/dL RDW 13.1 (11.5-14.5) % Plt Count 182 (140-400) K/mcL MPV 11.2 (9.4-12.4) fL Immature Gran % 0.3 (0-4) % Seg Neutrophils % 54.6 % Lymphocytes % 31.3 % Monocytes % 10.8 % Eosinophils % 1.8 % Basophils % 1.2 % Neutrophils # 3.3 (1.6-8.9) K/mcL Lymphocytes # 1.9 (0.6-4.6) K/mcL Monocytes # 0.7 (0.0-1.3) K/mcL Eosinophils # 0.1 (0.0-0.6) K/mcL Basophils # 0.1 (0.0-0.2) K/mcL PT 11.3 (9.4-12.1) Seconds INR 1.0 APTT 33.6 (26.0-36.0) Seconds Carboxyhemoglobin (0-5) % Sodium 138 (136-145) mEq/L Potassium 3.4 L (3.5-5.1) mEq/L Chloride 105 (98-107) mEq/L Carbon Dioxide 24 (23-29) mEq/L BUN 16 (6-20) mg/dL Creatinine 0.79 (0.70-1.30) mg/dL Est GFR ( Amer) > 60 (> 60) Est GFR (Non-Af Amer) > 60 (> 60) BUN/Creatinine Ratio 20 (6-26) Glucose 102 (70-105) mg/dL Calculated Osmolality 287 (280-300) Calcium 9.6 (8.6-10.3) mg/dL Total Bilirubin 0.4 (0.3-1.0) mg/dL Direct Bilirubin 0.1 (0.0-0.2) mg/dL Indirect Bilirubin 0.3 (0.0-1.2) mg/dL AST 12 L (13-39) Units/L ALT 9 (7-52) Units/L Alkaline Phosphatase 50 (34-104) Units/L Ammonia (16-53) mcmol/L Troponin I < 0.03 (< 0.04) ng/mL Serum Total Protein 7.0 (6.4-8.9) g/dL Albumin 4.5 (3.5-5.7) g/dL Globulin 2.5 (2.4-3.5) g/dL Albumin/Globulin Ratio 1.8 (1.1-2.2) TSH 5.121 (0.340-5.600) mcIU/mL Urine Color (Yellow) Urine Clarity (Clear) Urine pH (5.0-8.0) pH Units Ur Specific [place] (1.010-1.025) Urine Protein (Neg-Trace) mg/dL Urine Glucose (UA) (Normal) mg/dL Urine Ketones (Negative) mg/dL Urine Blood (Negative) Urine Nitrite (Negative) Urine Bilirubin (Negative) Urine Urobilinogen (Normal) mg/dL Ur Leukocyte Esterase (Negative) Urine Microscopic RBC (0-3) per hpf Urine Microscopic WBC (0-3) per hpf Ur Squamous Epith Cells (None-Few) per lpf Urine Bacteria (None-Few) per hpf Hyaline Casts (None-Few) per lpf Ur Culture Indicated? (NO) Urine Opiates Screen (Fsqtqo=778) ng/mL Ur Barbiturates Screen (Ktpjgl=461) ng/mL Ur Phencyclidine Scrn (Cutoff=25) ng/mL Ur Amphetamines Screen (Nuwldq=9246) ng/mL U Benzodiazepines Scrn (Luuphr=929) ng/mL Urine Cocaine Screen (Cutoff= 300) ng/mL U Marijuana (THC) Screen (Cutoff = 50) ng/mL Ur Drug Screen Interp Ethyl Alcohol < 10 (Less than 10) mg/dL 10/26/18 10/26/18 10/26/18 Range/Units 01:55 01:55 02:24 WBC (4.3-11.1) K/mcL RBC (4.19-5.50) M/mcL Hgb (12.9-16.9) g/dL Hct (37.5-50.1) % MCV (83.0-100.0) fL MCH (28.0-33.3) pg MCHC (31.6-35.5) g/dL RDW (11.5-14.5) % Plt Count (140-400) K/mcL MPV (9.4-12.4) fL Immature Gran % (0-4) % Seg Neutrophils % % Lymphocytes % % Monocytes % % Eosinophils % % Basophils % % Neutrophils # (1.6-8.9) K/mcL Lymphocytes # (0.6-4.6) K/mcL Monocytes # (0.0-1.3) K/mcL Eosinophils # (0.0-0.6) K/mcL Basophils # (0.0-0.2) K/mcL PT (9.4-12.1) Seconds INR APTT (26.0-36.0) Seconds Carboxyhemoglobin 6.7 H (0-5) % Sodium (136-145) mEq/L Potassium (3.5-5.1) mEq/L Chloride (98-107) mEq/L Carbon Dioxide (23-29) mEq/L BUN (6-20) mg/dL Creatinine (0.70-1.30) mg/dL Est GFR ( Amer) (> 60) Est GFR (Non-Af Amer) (> 60) BUN/Creatinine Ratio (6-26) Glucose (70-105) mg/dL Calculated Osmolality (280-300) Calcium (8.6-10.3) mg/dL Total Bilirubin (0.3-1.0) mg/dL Direct Bilirubin (0.0-0.2) mg/dL Indirect Bilirubin (0.0-1.2) mg/dL AST (13-39) Units/L ALT (7-52) Units/L Alkaline Phosphatase (34-104) Units/L Ammonia 42 (16-53) mcmol/L Troponin I (< 0.04) ng/mL Serum Total Protein (6.4-8.9) g/dL Albumin (3.5-5.7) g/dL Globulin (2.4-3.5) g/dL Albumin/Globulin Ratio (1.1-2.2) TSH (0.340-5.600) mcIU/mL Urine Color Dark Yellow (Yellow) Urine Clarity Clear (Clear) Urine pH 5.5 (5.0-8.0) pH Units Ur Specific [place] 1.020 (1.010-1.025) Urine Protein 30 H (Neg-Trace) mg/dL Urine Glucose (UA) Normal (Normal) mg/dL Urine Ketones 80 H (Negative) mg/dL Urine Blood Negative (Negative) Urine Nitrite Negative (Negative) Urine Bilirubin Small H (Negative) Urine Urobilinogen Normal (Normal) mg/dL Ur Leukocyte Esterase Negative (Negative) Urine Microscopic RBC 0-3 (0-3) per hpf Urine Microscopic WBC 0-3 (0-3) per hpf Ur Squamous Epith Cells Many H (None-Few) per lpf Urine Bacteria None Seen (None-Few) per hpf Hyaline Casts None Seen (None-Few) per lpf Ur Culture Indicated? NO (NO) Urine Opiates Screen (Opecsi=488) ng/mL Ur Barbiturates Screen (Lklffc=316) ng/mL Ur Phencyclidine Scrn (Cutoff=25) ng/mL Ur Amphetamines Screen (Gzzyym=7047) ng/mL U Benzodiazepines Scrn (Fjozii=445) ng/mL Urine Cocaine Screen (Cutoff= 300) ng/mL U Marijuana (THC) Screen (Cutoff = 50) ng/mL Ur Drug Screen Interp Ethyl Alcohol (Less than 10) mg/dL 10/26/18 Range/Units 02:24 WBC (4.3-11.1) K/mcL RBC (4.19-5.50) M/mcL Hgb (12.9-16.9) g/dL Hct (37.5-50.1) % MCV (83.0-100.0) fL MCH (28.0-33.3) pg MCHC (31.6-35.5) g/dL RDW (11.5-14.5) % Plt Count (140-400) K/mcL MPV (9.4-12.4) fL Immature Gran % (0-4) % Seg Neutrophils % % Lymphocytes % % Monocytes % % Eosinophils % % Basophils % % Neutrophils # (1.6-8.9) K/mcL Lymphocytes # (0.6-4.6) K/mcL Monocytes # (0.0-1.3) K/mcL Eosinophils # (0.0-0.6) K/mcL Basophils # (0.0-0.2) K/mcL PT (9.4-12.1) Seconds INR APTT (26.0-36.0) Seconds Carboxyhemoglobin (0-5) % Sodium (136-145) mEq/L Potassium (3.5-5.1) mEq/L Chloride (98-107) mEq/L Carbon Dioxide (23-29) mEq/L BUN (6-20) mg/dL Creatinine (0.70-1.30) mg/dL Est GFR ( Amer) (> 60) Est GFR (Non-Af Amer) (> 60) BUN/Creatinine Ratio (6-26) Glucose (70-105) mg/dL Calculated Osmolality (280-300) Calcium (8.6-10.3) mg/dL Total Bilirubin (0.3-1.0) mg/dL Direct Bilirubin (0.0-0.2) mg/dL Indirect Bilirubin (0.0-1.2) mg/dL AST (13-39) Units/L ALT (7-52) Units/L Alkaline Phosphatase (34-104) Units/L Ammonia (16-53) mcmol/L Troponin I (< 0.04) ng/mL Serum Total Protein (6.4-8.9) g/dL Albumin (3.5-5.7) g/dL Globulin (2.4-3.5) g/dL Albumin/Globulin Ratio (1.1-2.2) TSH (0.340-5.600) mcIU/mL Urine Color (Yellow) Urine Clarity (Clear) Urine pH (5.0-8.0) pH Units Ur Specific [place] (1.010-1.025) Urine Protein (Neg-Trace) mg/dL Urine Glucose (UA) (Normal) mg/dL Urine Ketones (Negative) mg/dL Urine Blood (Negative) Urine Nitrite (Negative) Urine Bilirubin (Negative) Urine Urobilinogen (Normal) mg/dL Ur Leukocyte Esterase (Negative) Urine Microscopic RBC (0-3) per hpf Urine Microscopic WBC (0-3) per hpf Ur Squamous Epith Cells (None-Few) per lpf Urine Bacteria (None-Few) per hpf Hyaline Casts (None-Few) per lpf Ur Culture Indicated? (NO) Urine Opiates Screen Negative (Kbtfap=625) ng/mL Ur Barbiturates Screen Negative (Svuzml=962) ng/mL Ur Phencyclidine Scrn Negative (Cutoff=25) ng/mL Ur Amphetamines Screen Negative (Bcqnmk=6339) ng/mL U Benzodiazepines Scrn Negative (Mqwuuz=748) ng/mL Urine Cocaine Screen Negative (Cutoff= 300) ng/mL U Marijuana (THC) Screen Positive H (Cutoff = 50) ng/mL Ur Drug Screen Interp See Below Ethyl Alcohol (Less than 10) mg/dL - Radiology Data Radiology results reviewed: Yes I reviewed the patient's radiology results. Chest X-Ray 10/26/18 01:57 IMPRESSION: No significant findings in the chest. D/ / Scotty Woo MD / Scotty Woo MD Interpreting Provider: Scotty Woo MD Head CT 10/26/18 01:57 IMPRESSION: No acute intracranial abnormality. D/ / Scotty Woo MD / Scotty Woo MD Interpreting Provider: Scotty Woo MD - EKG Data EKG #1 EKG attestation: Yes I reviewed and interpreted this EKG. EKG results narrative: EKG shows an electronic atrial pacemaker with a rate of 62. No acute ST segment elevation or depression. Attestation Statement - Attestation Attestation: I, Dawood Bustillos MD, personally evaluated this patient and discussed their management with the resident physician. I reviewed the resident's note and agree with the documented findings, medical decision making, and plan of care. 53-year-old male presents to the emergency department by EMS unresponsive. Apparently patient called 911 himself because he was concerned that he had car bon monoxide poisoning. When EMS arrived they reported patient was sitting in a chair but was unresponsive and drooling. Vital signs have been normal throughout transport. Fingerstick blood sugar was 115. Patient received Narcan 0.5 mg with no change in his status. On arrival here in the emergency department patient is unresponsive but has fluttering eyelids on arrival. He does open his eyes spontaneously but does not follow commands. No obvious focal deficits noted. Last known normal was unknown. On examination patient is a well-developed well-nourished male. No cyanosis or diaphoresis. Breath sounds are clear and equal bilaterally. Heart regular rate and rhythm. Abdomen is soft with present bowel sounds. Patient received additional Narcan here with no improvement. He did gradually come more alert and started talking. He does not remember what happened. He complains that he hurts all over like someone beat him. Patient's vital signs have remained normal throughout his stay in the emergency department. Head CT negative. Chest x-ray negative. Labs reviewed and unr emarkable. EKG shows an electronic atrial pacer with rate of 62. No acute ischemic changes. The hospitalist, Dr. Elias, was consulted and accepted admission of the patient.
[2018-10-26] MEDS ORDERED: Ringers Solution, Lactated 1,000 ML IVC SCH (06:00)
--- NOTE | 2018-10-26 06:08 | Internal Med History&Physical ---
Date of Encounter: 10/26/18 Time of Encounter: 06:04 Internal Medicine - H&P: HPI Chief complaint: ams Admitted From: Home Plans for Post Hospital Care: Home History of present illness: Nikhil Alcala is a 53-year-old man with an unclear past medical history who is brought in by EMS after being found poorly responsive. Information provided by axillary staff is that he lives with his mother on the same property but in 2 separate buildings and subsequently went to his mothers house where he called EMS requesting assistance saying that he did not feel well with the concern that he had carbon monoxide poisoning for unclear reasons. When EMS arrived it is stated that he was sitting in a chair slumped and drooling all over himself. He was given 0.5 mg of naloxone on rounds without a change in his mental status. His vitals remained within normal limits throughout transportation and his fingerstick blood sugars 1:15. On arrival to the ER it is stated that he was unresponsive of fluttering his eyelids. There were no focal deficits apparent. He was given another 2 mg of naloxone with minimal changes to his mental status. Gradually over time he became more responsive and followed commands and was able to signal and out a few words. Head CT done revealed no anomalies. His labs are grossly within normal limits. EKG showed an atrial paced rhythm and no acute ischemic changes. CO-Hgb level was 6.7%. UDS positive for THC. No further interventions were performed and he is now admitted for observation. On my assessment he was lethargic but arousable, saying I cant remember anything. He also complained of feeling generalized soreness as though he had been run over by a truck. Past Med Surg Social Fam HX - Past Medical History Medical history: atrial fibrillation, dementia, seizures, other Additional medical history: bradycardia Psychiatric history: anxiety, depression, PTSD - Past Surgical History Surgical History: pacemaker/AICD, pacemaker Additional surgical history: cyst removed from forehead, right foot surgery - Social History Smoking Status: Unknown if ever smoked Smokeless Tobacco Status: No Alcohol use: none Drug use: marijuana - Family History Father Living Status: Hx Family Cardiac Disorders: Yes Hx Family Cancer: Yes Internal Medicine - H&P: Meds Aspirin [Lo-Dose Aspirin EC] 81 mg PO DAILY 04/11/17 [History] Metoprolol [Lopressor] 25 mg PO BID 10/20/17 [History] Cyclobenzaprine [Flexeril] 10 mg PO TID PRN #9 tablet 03/29/18 [Rx] Naproxen [Naprosyn] 500 mg PO BID #14 tablet 03/29/18 [Rx] Allergy/AdvReac Type Severity Reaction Status Date / Time No Known Allergies Allergy Verified 10/26/18 01:53 All Systems PM: A 10-system review of systems was performed and is negative for pertinent findings except as documented above in the HPI. - Constitutional Vitals: Temp Pulse Resp BP Pulse Ox 97.7 F 60 14 118/66 95 10/26/18 01:53 10/26/18 05:01 10/26/18 05:01 10/26/18 05:01 10/26/18 05:01 Exam: Vitals: Reviewed General: Unkempt, disheveled, lethargic but arousable and answer appropriately. Skin: Warm. HEENT: Dry mucous membranes. No conjunctivae pallor. Neck: No lymphadenopathy. No JVD. No carotid bruits. No palpable thyroid. Chest: Normal thoracic expansion. Normal breath sounds. Clear to auscultation. Heart: Normal S1 & S2; rhythmic. No rubs or murmurs. Abdomen: Non-distended, soft and periumbilical tenderness elicited. No peritoneal reaction. Liver is normal in size. Spleen is not palpable. Extremities: No clubbing, cyanosis or edema. No calf tenderness. Normal distal pulses. Neurological: Awake, alert and oriented to person. No focal deficits. Psych: Affect appropriate. Internal Med - H&P Results - Labs CBC & Chem 7: 10/26/18 01:55 10/26/18 01:55 Labs: Short CBC 10/26/18 Range/Units 01:55 WBC 6.0 (4.3-11.1) K/mcL Hgb 14.0 (12.9-16.9) g/dL Hct 40.9 (37.5-50.1) % Plt Count 182 (140-400) K/mcL Neutrophils # 3.3 (1.6-8.9) K/mcL BMP 10/26/18 01:55 Sodium 138 Potassium 3.4 L Chloride 105 Carbon Dioxide 24 BUN 16 Creatinine 0.79 Glucose 102 Calcium 9.6 Cardiac Enzymes 10/26/18 Range/Units 01:55 Troponin I < 0.03 (< 0.04) ng/mL Liver Function 10/26/18 Range/Units 01:55 Total Bilirubin 0.4 (0.3-1.0) mg/dL Direct Bilirubin 0.1 (0.0-0.2) mg/dL AST 12 L (13-39) Units/L ALT 9 (7-52) Units/L Alkaline Phosphatase 50 (34-104) Units/L Albumin 4.5 (3.5-5.7) g/dL Urine 10/26/18 Range/Units 02:24 Urine Color Dark Yellow (Yellow) Urine Clarity Clear (Clear) Urine pH 5.5 (5.0-8.0) pH Units Ur Specific [place] 1.020 (1.010-1.025) Urine Protein 30 H (Neg-Trace) mg/dL Urine Glucose (UA) Normal (Normal) mg/dL - Impressions ITS Impressions Chest X-Ray 10/26/18 01:57 IMPRESSION: No significant findings in the chest. D/ / Scotty Woo MD / Scotty Woo MD Interpreting Provider: Scotty Woo MD Head CT 10/26/18 01:57 IMPRESSION: No acute intracranial abnormality. D/ / Scotty Woo MD / Scotty Woo MD Interpreting Provider: Scotty Woo MD - Assessment and plan (1) Acute encephalopathy Current Visit: Yes Status: Acute Assessment and plan: The etiology of this is unclear. There is no evidence of cerebrovascular disease nor is there any suggestion of an infectious state. It is unclear why he felt the may have had carpal monoxide poisoning as we do not have the details of what the state of his home was like however his CO level was not significantly elevated and was at a level that can be seen in smokers. All the same we will continue supplemental oxygen therapy. Concern that there may be a metabolic component in the form of an exogenous intoxication which may include but is not limited to THC. Will place on IVF to rehydrate given his dry appearing membranes and ongoing maintenance needs, seizure/fall/aspiration precautions; consider neurology consultation if he does not improve over the next few hours as he could posisbly need an MRI i.e post-ictal from a convulsion. (2) Cardiac pacemaker in situ Current Visit: Yes Status: Acute Assessment and plan: Will monitor patient on telemetry. Obtain echo. (3) Marijuana use Current Visit: Yes Status: Acute Assessment and plan: Evaluation needed as to his degree of use and potential for "laced" products. (4) DVT prophylaxis Current Visit: Yes Status: Acute Assessment and plan: SubQ heparin. - Time Spent With Patient Total time spent is greater than 50% in coordination of care (as documented) at patient's floor/unit and/or counseling patient: Greater than 35 minutes
[2018-10-26] MEDS: *HR* Heparin 5,000 UNIT/ML VIAL SQ SCH ×2 (06:44→17:03)
[2018-10-26] MEDS: Aspirin Enteric Coated 81 MG Tablet PO SCH (09:42)
--- NOTE | 2018-10-26 09:46 | Event Note ---
Date of Encounter: 10/26/18 Time of Encounter: 09:43 Patient was seen and examined earlier this am by hospitalist. Currently the patient is oriented to name only. He does not recall alot of events that occurred last night. I did discuss the case with Dr Martinez neurology who will see patient . I did review treatment plan with the patient who verbalized understanding- I will order EEG and MRI -L5 per MRI the patient has a pacemaker we will have to confirm with his family resource management professor concerning pacemaker placement prior to proceeding with MRI.
--- NOTE | 2018-10-26 15:06 | Electrocardiograph Report ---
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
--- NOTE | 2018-10-26 15:23 | Neurology - Consult Note ---
Date of Encounter: 10/26/18 Time of Encounter: 08:40 Assessment and Plan (1) Altered mental status Current Visit: Yes Status: Acute At this point it is not clear that what brought the patient in certainly he has these episodes of unresponsiveness and these mental status changes he is not able to give much history about the events. 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 particularly no evidence of any clinical sign of meningitis CT scan of the head is been negative Try to get some more information about his baseline as well to the even that he had suggested check for underlying metabolic as well as infectious etiologies On the other hand we will try to get an MRI of the brain as well as EEG for interictal abnormalities I would hold on for any antiseizure medication at this time until we have a definite diagnosis Also suggested check for other possible etiologies continue to monitor him for any cardiac arrhythmias Qualifiers: Altered mental status type: transient alteration of awareness Qualified Code(s): R40.4 - Transient alteration of awareness (2) Marijuana use Current Visit: Yes Status: Acute History of Present Illness HPI: Mr. Alcala is a 53 year old male admitted from ER when he was found poorly responsive. As per records he lives with his mother on the same property but in 2 separate buildings and subsequently went to his mothers house where he called EMS requesting assistance saying that he did not feel well with the concern that he had carbon monoxide poisoning. When EMS arrived it is stated that he was sitting in a chair slumped and drooling all over himself. He was given 0.5 mg of naloxone without a change in his mental status. There were no focal deficits noted in the emergency room, He was given another 2 mg of naloxone with minimal changes to his mental status. Gradually over time he became more responsive and followed commands. Head CT done revealed no anomalies. His labs are grossly within normal limits. EKG showed an atrial paced rhythm and no acute ischemic changes. CO- Hgb level was 6.7%. UDS positive for THC. he is now admitted for observation. On my assessment he was lethargic but arousable, saying I cant remember anything. He also complained of feeling generalized soreness He did have a remote history of seizures but denies having any recent seizures seems that he started using marijuana which has helped and he did not have any further seizures since then he is not sure about time levy. Past Med Surg Social Fam HX - Past Medical History Medical history: atrial fibrillation, dementia, seizures, other Additional medical history: bradycardia Psychiatric history: anxiety, depression, PTSD - Past Surgical History Surgical History: pacemaker/AICD, pacemaker Additional surgical history: cyst removed from forehead, right foot surgery - Social History Smoking Status: Unknown if ever smoked Smokeless Tobacco Status: No Alcohol use: none Drug use: marijuana - Family History Father Living Status: Hx Family Cardiac Disorders: Yes Hx Family Cancer: Yes Medications and Allergies Aspirin [Lo-Dose Aspirin EC] 81 mg PO DAILY 04/11/17 [History] Baclofen [Lioresal] 10 mg PO TID PRN 10/26/18 [History] Diltiazem CD (24hr) [Cardizem CD] 240 mg PO DAILY 10/26/18 [History] Divalproex Sodium 250 mg PO BID 10/26/18 [History] Escitalopram [Lexapro] 20 mg PO DAILY 10/26/18 [History] Omeprazole [PriLOSEC] 20 mg PO BID 10/26/18 [History] Ondansetron HCl 4 mg PO TID PRN 10/26/18 [History] Allergy/AdvReac Type Severity Reaction Status Date / Time No Known Allergies Allergy Verified 10/26/18 01:53 All Systems: The remainder of the systems were reviewed and are negative Physical Examination - Vital Signs Vital Signs: Initial Vital Signs Temp Pulse Resp BP Pulse Ox 97.7 F 63 20 137/79 97 10/26/18 01:53 10/26/18 01:53 10/26/18 01:53 10/26/18 01:53 10/26/18 01:53 - Exam Exam: GENERAL: Comfortable in no acute distress HEENT: Normal LUNGS: CTA HEART: RRR, S1 S2 Audible, no murmur EXTREMITIES: No Pedal edema. DETAILED NEUROLOGICAL EXAMINATION: MENTAL STATUS: Oriented to person, place, Memory: knows the President, Unable to assess Recent Memory Intact, Attention span is decrease he is not able to give much detailed information about his events Cranial Nerve Examination: CN - II: Visual Acuity, Field of Vision Normal, Fundus examination: No disk edema, Pupils- size shape reaction to light and accommodation: All normal. CN III, IV, : External ocular movements were intact, Pupils were reactive, Nodrooping of the eyelids CN V: Sensation over the face to light touch and pinprick all normal. Corneal reflexes not tested, jaw jerk normal. CN VII: No facial asymmetry, no flattening of nasolabial folds, no difficulty in closing the eyes, no loss of forehead wrinkles, no difficulty in eye-closure, frowning raising eyebrows. CNVIII: No significant hearing loss CN IX, X: Uvula centralized not deviated, Gag reflex: Not tested CN X1: Sternocleidomastoid, trapezius, normal or evidence of any weakness. CN X11: No Dysarthria, no wasting or fibrilation f tongue muscles, no deviation, tongue muscle strength normal. Motor examination: No hypertrophy, tone was normal, power grade 0-5 Upper limbs Proximal- No difficulty in lifting the arms above the head. Distal- No weakness in distal muscles On formal testing 4/4 Lower limbs On formal testing 4/4 Coordination: Ematuw-re-epfl normal. Slow but difficult to do Target pursuit normal finger tapping normal, Rapid alternating moment of wrist normal Sensory system: Superficial sensations- Touch normal. Pain- Pinprick, Temperature all normal, Deep sensation normal, Joint position sense normal. Cortical sensation, Tactile discrimination, localization and extinction all normal. Deep tendon reflexes. Symmetrical bilateral, No evidence of Babinski. No sign of meningeal irritation Gait Examination: Deferred - Constitutional General appearance: comfortable Results - Laboratory Findings CBC and BMP: 10/26/18 01:55 10/26/18 01:55 Abnormal lab findings: Abnormal lab results Carboxyhemoglobin 6.7 % (0-5) H 10/26/18 01:55 Potassium 3.4 mEq/L (3.5-5.1) L 10/26/18 01:55 AST 12 Units/L (13-39) L 10/26/18 01:55 Urine Protein 30 mg/dL (Neg-Trace) H 10/26/18 02:24 Urine Ketones 80 mg/dL (Negative) H 10/26/18 02:24 Urine Bilirubin Small (Negative) H 10/26/18 02:24 Ur Squamous Epith Cells Many per lpf (None-Few) H 10/26/18 02:24 Valproic Acid 15 mcg/mL (50-100) L 10/26/18 13:32 U Marijuana (THC) Screen Positive ng/mL (Cutoff = 50) H 10/26/18 02:24 Consult Discharge Plan - Plan Referrals: NONE,PCP [Primary Care Provider] -
--- NOTE | 2018-10-26 16:17 | EEG/EMG/Oth Biometrics Report ---
EEG Procedure Report EEG Procedure: Routine EEG Procedure Note: This is a routine 21 channel digital EEG performed utilizing 10- 20 international electrode placement system. FINDINGS: Patient has a predominant waking background frequency that is average voltage 8 to 10 Hertz alpha activity in the posterior region, normal amplitude symmetrical over the both hemispheres reactive to eyes opening and closing record continued to show alpha activity intermixed with some theta off and on, no abnormal activity recorded, predominantly no evidence of any spike wave discharges or any lateralizing abnormalities, Photic stimulation did not produce any convulsive response. Intermittent EMG artifacts were noted. Stage II sleep was not achieved. Impression: Normal awake drowsy electroencephalogram. No epileptiform discharges or any other paroxysmal activities noted. ( Please note that normal EEG does not exclude the diagnosis of seizures or epilepsy, clinical correlation is suggested)
[2018-10-26 16:28] LABS: Vitamin B12 467 pg/mL (250-1100)
[2018-10-26 16:42] LABS: Folate > 22.3 ng/mL (3.0-16.0)
[2018-10-26] MEDS: Divalproex (12 HR) 250 MG TABLET PO SCH (21:57)
[2018-10-26] MEDS ORDERED: Acetaminophen 325 MG TABLET PO ONE (22:56)
[2018-10-27] MEDS ORDERED: traMADol 50 MG TABLET PO PRN (05:28)
[2018-10-27] MEDS: *HR* Heparin 5,000 UNIT/ML VIAL SQ SCH (06:11)
[2018-10-27] MEDS ORDERED: Diltiazem CD (24hr) 240 MG CAPSULE PO SCH (09:00)
--- NOTE | 2018-10-27 10:19 | Event Note ---
Date of Encounter: 10/27/18 Time of Encounter: 10:15 - Cardiology Event Note Request for pacer check for MS changes. Claritics device check completed.
[2018-10-27] MEDS: Divalproex (12 HR) 250 MG TABLET PO SCH (10:28)
[2018-10-27] MEDS: Aspirin Enteric Coated 81 MG Tablet PO SCH (10:28)
[2018-10-27 10:47] LABS: BUN/Creatinine Ratio 20 (6-26); Blood Urea Nitrogen 16 mg/dL (6-20); Calcium 9.4 mg/dL (8.6-10.3); Carbon Dioxide 22 mEq/L (23-29); Chloride 108 mEq/L (98-107); Glucose 110 mg/dL (70-105); Osmolality,Calculated 286 (280-300); Potassium 4.3 mEq/L (3.5-5.1); Sodium 137 mEq/L (136-145); eGFR For Non-African Americans > 60 (> 60)
--- NOTE | 2018-10-27 11:23 | Neurology Progress Note ---
Date of Encounter: 10/27/18 Time of Encounter: 07:35 Assessment and Plan (1) Altered mental status Current Visit: Yes Status: Acute At this point it is not clear that what brought the patient in certainly he has these episodes of unresponsiveness and these mental status changes he is not able to give much history about the events. 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4 - Transient alteration of awareness (2) Marijuana use Current Visit: Yes Status: Acute Subjective Interval history: Stable no new episodes getting neuro workup EEG seems to be negative Objective - Constitutional Vitals: Temp Pulse Resp BP Pulse Ox 98.0 F 60 16 111/68 97 10/27/18 06:56 10/27/18 06:56 10/27/18 06:56 10/27/18 06:56 10/27/18 06:56 - Neurological Exam Motor Examination: Present: grossly full strength in all extremities, full strength in all major muscle groups Sensation intact: Present: intact Reflexes: Biceps: 1+, Triceps: 1+, Brachioradialis: 1+, Patella: 1+, Achilles: 1+ Mental Status Examination: Present: awake, alert, oriented to person, oriented to place, oriented to time Cranial nerve examination: Present: PERRL, visual gabriel intact, no facial asymmetry is present Results - Laboratory Findings CBC and BMP: 10/26/18 01:55 10/27/18 09:06 Abnormal lab findings: Abnormal lab results Carboxyhemoglobin 5.8 % (0-5) H 10/27/18 09:59 Chloride 108 mEq/L (98-107) H 10/27/18 09:06 Carbon Dioxide 22 mEq/L (23-29) L 10/27/18 09:06 Glucose 110 mg/dL (70-105) H 10/27/18 09:06 AST 12 Units/L (13-39) L 10/26/18 01:55 Folate > 22.3 ng/mL (3.0-16.0) H 10/26/18 01:55 Urine Protein 30 mg/dL (Neg-Trace) H 10/26/18 02:24 Urine Ketones 80 mg/dL (Negative) H 10/26/18 02:24 Urine Bilirubin Small (Negative) H 10/26/18 02:24 Ur Squamous Epith Cells Many per lpf (None-Few) H 10/26/18 02:24 Valproic Acid 15 mcg/mL (50-100) L 10/26/18 13:32 U Marijuana (THC) Screen Positive ng/mL (Cutoff = 50) H 10/26/18 02:24 Consult Discharge Plan - Plan Referrals: NONE,PCP [Primary Care Provider] -
[2018-10-27 11:46] VITALS: BP 144/86
--- NOTE | 2018-10-27 13:45 | Discharge Summary ---
- NOTES TO OUTPATIENT PROVIDER Notes to Outpatient Provider: Concerned for AMS- was seen by neurology- suspected possible seizure - EEG negative for any seizure type activity- interrogated pacemaker with no arrhythmias-patient does admit to past psychiatric history-appears to be noncompliant with medication does use marijuana almost daily and sure about other illicit drug use which may be exacerbating his symptoms-signed out AMA Orders not resulted at time of discharge: Pending orders 10/26/18 01:55 Vitamin B1 (Thiamine) Whole Bl Routine Date of Encounter: 10/27/18 Time of Encounter: 13:42 - Discharge Diagnosis (1) Acute encephalopathy Priority: Primary Status: Acute (2) Cardiac pacemaker in situ Priority: Secondary Status: Acute (3) Marijuana use Priority: Secondary Status: Acute Hospital course: Mr. Alcala is a 53 year old male past medical history of atrial fibrillation dementia seizures past psychiatric history. Was brought to [facility] by EMS he was found poorly responsive at his mother's home. EMS was notified there was some suspicion for possible carbon monoxide poisoning he was found slumped in a chair drooling on self he was given 2 rounds of Narcan without any response brought to the ER and gradually became more responsive head CT revealed no acute abnormalities lab work was within normal limits EKG showed atrial paced radiogram with no acute ischemic changes COH GB level was 6.7 and recheck was 5.8 UDS was positive for THC. He became more alert oriented to self only EEG was completed with no signs of seizure activity he was evaluated by neurology who did not suspect any symptoms of [employer] infection patient did not display any clinical signs of meningitis-urinalysis was unremarkable chest x-ray with no acute process no fevers no white count do not suspect any infectious etiology. Patient admitted that he does smoke marijuana almost daily but denies any other drug use. He also admits that he has not been compliant with this medication and that marijuana helps with his seizures. His valproic acid level was less than 15. I am suspect possible psychiatric component etiology of symptoms Cardiology did interrogate patient's pacemaker with no arrhythmias noted. 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 She did provide information concerning pacemaker. This morning the patient and his were very upset requesting to be transferred to [place] asked the patient if we can perform an MRI prior to being transferred which she agreed at that time. Patient was making inappropriate statement this am- stating that he saw worms in his food and that he would mot eat his breakfast nursing staff attempting to set up possible MRI however patient continued to be agitated with care. He states his had a seizure early this morning and the nursing staff did not system also that he was in the bathroom for several minutes without any assistance. Patient is requesting to sign out AMA- I did have Dr Mendenhall evaluate the patient - He did speak to patient via telephone- she states that the patient appears to be back to baseline- and that he was confused 2 days prior to arriving to ER. She does admit that patient does have a psychiatric hx- Dr Herrera offered psych service however she and the patient declined- offered to transfer patient to [place] since this with a requested earlier today but declined at this time patient states "get me AMA papers to sign" Dr Herrera asked idf she felt he was back to baseline and if she felt comfortable taking him home- she said "yes" - She agreed to take responsibility for patient care- advised to return to ED If confusion persists or any seizure activity- Patient left AMA - Time Spent with Patient Total time spent providing and/or coordinating discharge services: - Discharge Medications Home Medications: Aspirin [Lo-Dose Aspirin EC] 81 mg PO DAILY 04/11/17 [History] Baclofen [Lioresal] 10 mg PO TID PRN 10/26/18 [History] Diltiazem CD (24hr) [Cardizem CD] 240 mg PO DAILY 10/26/18 [History] Divalproex Sodium 250 mg PO BID 10/26/18 [History] Escitalopram [Lexapro] 20 mg PO DAILY 10/26/18 [History] Omeprazole [PriLOSEC] 20 mg PO BID 10/26/18 [History] Ondansetron HCl 4 mg PO TID PRN 10/26/18 [History] Allergies/Adverse Reactions: Allergy/AdvReac Type Severity Reaction Status Date / Time No Known Allergies Allergy Verified 10/26/18 01:53 Date of admission: 10/26/18 04:59 Primary care physician: PCP NONE Consults: 10/26/18 09:32 Consult to Neurology [CONS] Routine Consulting Provider: [facility] Reason for Consult: possible seizure Time Notified: 09:32 Call Completed: Yes 10/26/18 13:17 Consult to Interpret Exam [CONS] Routine Consulting Provider: Kerry Chris I Consult to Interpret Exam: Interpret EEG 10/27/18 09:26 Consult to Cardiology [CONS] Routine Comment: Consulting Provider: Card[facility] Reason for Consult: interrogate pacemaker Time Notified: 09:32 Call Completed: Yes - Constitutional Vitals: Temp Pulse Resp BP Pulse Ox 97.8 F 61 18 144/86 97 10/27/18 11:45 10/27/18 11:45 10/27/18 11:45 10/27/18 11:45 10/27/18 11:45 Exam: . - Head Head exam: Present: atraumatic, normocephalic - Eye Eye exam: Present: PERRL, conjuntiva pink, sclera anicteric Pupils: Present: PERRL - Neck Neck exam general surgery: Present: supple, trachea midline. Absent: lymphadenopathy - Respiratory Respiratory exam: Present: CTAB. Absent: accessory muscle use, rales, rhonchi, wheezes - Cardiovascular Cardiovascular exam: Present: RRR, +S1, +S2. Absent: diastolic murmur, gallop, rubs, systolic murmur - GI/Abdominal GI/Abdominal exam: Present: normal bowel sounds, soft, no peritoneal signs. Absent: distended, tenderness - Extremities Exam Extremities exam: Present: warm, radial pulses palpable and symmetrical. Absent: calf tenderness, cyanotic, pedal edema - Neurological Exam Neurological exam: Present: CN II-XII intact, oriented X3, no focal deficits. Absent: pronater drift, facial droop, speech deficit - Skin Skin exam: Present: dry, intact - Patient Status Disposition: Left Against Medical Advice Condition: Fair - Discharge Instructions Follow Up With: NONE,PCP [Primary Care Provider] -
== END 2018-10-27 14:47 | disposition left against medical advice (07) ==
LOC: EMEROOARM 01:46 → 3BNU 01:46
PROVIDERS: ADMIT Internal Medicine; ATTEND Internal Medicine